=== PATIENT | male | born 1945 | race Caucasian/White ===

== ENCOUNTER 2018-06-04 09:53 | Inpatient (IN) ==
--- NOTE | 2018-06-04 10:40 | ED ---
HPI General Chief Complaint: Psychiatric Symptoms Stated Complaint: Psych eval Time Seen by Provider: 06/04/18 10:07 Source: patient Mode of arrival: ambulatory Limitations: no limitations History of Present Illness HPI Narrative: 72-year-old male presents to the emergency department voluntarily with complaint of depression for the past several months. His psychiatrist recommended he come for evaluation. He was started on a new medication a month ago for his depression and it is not been working. He has taken Wellbutrin, Viibryd, and Abilify in the past. He also has history of anxiety. Reports having thoughts of suicide that have crossed his mind but does not know how to go about it. He does not have any specific plan or any specific thoughts. He denies homicidal ideations. Denies history of suicidal attempts. Denies auditory visual hallucinations. Denies IV drug use, illicit drug use, EtOH, tobacco use. Says the symptoms are aggravated by "everything." Relieved by knowing that he is the only apparent to his daughter. Onset unknown. Duration chronic. Symptoms are moderate to severe in severity. Has been being treated by psychiatrist and started on new medication for symptom management. Psychiatrist is Dr. Villanueva. No known allergies. History of hypercholesterolemia and DVT/PE. Takes Xarelto. Has no other medical complaints. Denies chest pain, shortness breath, abdominal pain, nausea, vomiting, change in urine or stool. No other modifying factors or associated signs and symptoms. Related Data Home Medications Medication Instructions Recorded Confirmed atorvastatin 20 mg PO DAILY 06/04/18 06/04/18 bupropion HCl 300 mg PO DAILY 06/04/18 06/04/18 lamotrigine 100 mg PO BID 06/04/18 06/04/18 lorazepam 1 mg PO BID 06/04/18 06/04/18 mirtazapine 45 mg PO DAILY 06/04/18 06/04/18 rivaroxaban [Xarelto] 15 mg PO DAILY 06/04/18 06/04/18 Allergies Allergy/AdvReac Type Severity Reaction Status Date / Time No Known Allergies Allergy Verified 06/04/18 10:19 Review of Systems ROS: all other systems reviewed are negative PMFSH History History Provided By: Patient Medical History Medical History Deep venous thrombosis (Acute) Hypercholesteremia (Acute) Pulmonary embolism (Acute) Surgical History Surgical History Previous back surgery (Acute) Social History Social History Substance History: No History of Abuse Second Hand Smoke Exposure: No Smoking Status: Never smoker How Often Do You Have a Drink Containing Alcohol: Never Recent Travel in [facility] within the Last 8 Weeks: No Recent Out of Country Travel within the Last 8 Weeks: No Exam Narrative Exam Narrative: GENERAL: Well-nourished, well-developed elderly, male patient, in no acute distress SKIN: Warm and dry. HEAD: Atraumatic. Normocephalic. EYES: Pupils equal and round. ENT: Mucosa pink and moist. NECK: Supple. Trachea midline. CARDIOVASCULAR: Regular rate and rhythm. No murmur appreciated. RESPIRATORY: No accessory muscle use. Clear to auscultation. Breath sounds equal bilaterally. GASTROINTESTINAL: Abdomen soft, non-tender, nondistended. Hepatic and splenic margins not palpable. Bowel sounds are active 4 quadrants. MUSCULOSKELETAL: No obvious deformities. No clubbing. No cyanosis. No edema. NEUROLOGICAL: Awake and alert. Oriented 3. No obvious cranial nerve deficits. Motor grossly within normal limits. Normal speech. Moves all extremities. 5/5 strength to all extremities. PSYCHIATRIC: No delusional thought processes. No hallucinations. Course Initial Documented Vital Signs Temperature 97.7 F 06/04/18 09:55 Pulse Rate 97 H 06/04/18 09:55 Respiratory Rate 13 06/04/18 09:55 Blood Pressure 129/76 06/04/18 09:55 Pulse Oximetry 95 06/04/18 09:55 Last Documented Vital Signs Temperature 98 F 06/06/18 06:59 Pulse Rate 74 06/06/18 06:59 Respiratory Rate 16 06/06/18 06:59 Blood Pressure 130/61 06/06/18 06:59 Pulse Oximetry 95 06/06/18 06:59 Medical Decision Making MDM Narrative Medical decision making narrative: Patient presents voluntarily. Physical examination and vital signs are essentially unremarkable. Patient has no medical complaints to report. Psych screen has been ordered. If the laboratory results are unremarkable, the patient will be medically cleared for psychiatric evaluation and disposition. Medical Screen Exam Complete: Yes Emergency Medical Condition: Yes Differential Diagnosis Differential Diagnosis: Depression, anxiety, suicidal ideation, adjustment disorder, medical clearance for psychiatric evaluation Lab Data Result diagrams: 06/04/18 10:45 06/05/18 05:56 Lab Results 06/04/18 06/04/18 06/04/18 Range/Units 10:45 10:45 10:45 WBC 7.0 (4.0-11.0) th/mm3 RBC 4.40 L (4.50-5.90) mil/mm3 Hgb 14.0 (13.0-17.0) gm/dL Hct 40.4 (39.0-51.0) % MCV 91.8 (80.0-100.0) fL MCH 31.9 (27.0-34.0) pg MCHC 34.7 (32.0-36.0) % RDW 14.6 (11.6-17.2) % Plt Count 187 (150-450) th/mm3 MPV 9.7 (7.0-11.0) fL Neut % (Auto) 69.5 (16.0-70.0) % Lymph % (Auto) 19.8 (9.0-44.0) % [place] % (Auto) 8.5 H (0.0-8.0) % Eos % (Auto) 1.5 (0.0-4.0) % Baso % (Auto) 0.7 (0.0-2.0) % Neut # (Auto) 4.9 (1.8-7.7) th/mm3 Lymph # (Auto) 1.4 (1.0-4.8) th/mm3 [place] # (Auto) 0.6 (0.0-0.9) th/mm3 Eos # (Auto) 0.1 (0.0-0.4) th/mm3 Baso # (Auto) 0.0 (0.0-0.2) th/mm3 WBC Differential . Differential Comment Auto diff final Sodium 138 (136-145) meq/L Potassium 3.9 (3.5-5.1) meq/L Chloride 106 (98-107) meq/L Carbon Dioxide 22.0 (21.0-32.0) meq/L Anion Gap 10 (5-15) meq/L BUN 16 (7-18) mg/dL Creatinine 1.21 (0.60-1.30) mg/dL Estimated GFR 59 L (>89) mL/min Random Glucose 136 H (74-106) mg/dL Hemoglobin A1c (4.3-6.0) % Calcium 9.3 (8.5-10.1) mg/dL Total Bilirubin 0.3 (0.2-1.0) mg/dL AST 13 L (15-37) U/L ALT 51 (12-78) U/L Alkaline Phosphatase 78 (45-117) U/L Total Protein 7.3 (6.4-8.2) g/dL Albumin 3.5 (3.4-5.0) g/dL Triglycerides (42-150) mg/dL Cholesterol (120-200) mg/dL LDL Cholesterol, Calc (0-99) mg/dL HDL Cholesterol (40.0-60.0) mg/dL Cholesterol/HDL Ratio Ratio TSH 2.450 (0.358-3.740) uIU/mL Urine Color (Yellw/Straw) Urine Clarity (Clear) Urine pH (5.0-8.5) Ur Specific [place] (1.002-1.035) Urine Protein (Neg-Trace) mg/dL Urine Glucose (UA) (Negative) mg/dL Urine Ketones (Negative) mg/dL Urine Occult Blood (Negative) Urine Nitrate (Negative) Urine Bilirubin (Negative) Urine Urobilinogen (Less than 2) mg/dL Ur Leukocyte Esterase (Negative) Urine RBC (0-3) /hpf Urine WBC (0-5) /hpf Urine Mucus (Occasional) /lpf Micro UA Comment Ur Microscopic Review Urine Culture Comments Salicylates Less than 1.7 L (2.8-20.0) mg/dL Urine Opiates Screen (Neg) Acetaminophen Less than 2.0 L (10.0-30.0) mcg/mL Ur Barbiturates Screen (Neg) Ur Amphetamines Screen (Neg) U Benzodiazepines Scrn (Neg) Urine Cocaine Screen (Neg) U Cannabinoids Screen (Neg) Serum Alcohol Less than 3 (0-5) mg/dL 06/04/18 06/04/18 06/05/18 Range/Units 10:45 10:45 05:56 WBC (4.0-11.0) th/mm3 RBC (4.50-5.90) mil/mm3 Hgb (13.0-17.0) gm/dL Hct (39.0-51.0) % MCV (80.0-100.0) fL MCH (27.0-34.0) pg MCHC (32.0-36.0) % RDW (11.6-17.2) % Plt Count (150-450) th/mm3 MPV (7.0-11.0) fL Neut % (Auto) (16.0-70.0) % Lymph % (Auto) (9.0-44.0) % [place] % (Auto) (0.0-8.0) % Eos % (Auto) (0.0-4.0) % Baso % (Auto) (0.0-2.0) % Neut # (Auto) (1.8-7.7) th/mm3 Lymph # (Auto) (1.0-4.8) th/mm3 [place] # (Auto) (0.0-0.9) th/mm3 Eos # (Auto) (0.0-0.4) th/mm3 Baso # (Auto) (0.0-0.2) th/mm3 WBC Differential Differential Comment Sodium 142 (136-145) meq/L Potassium 4.2 (3.5-5.1) meq/L Chloride 111 H (98-107) meq/L Carbon Dioxide 21.7 (21.0-32.0) meq/L Anion Gap 9 (5-15) meq/L BUN 14 (7-18) mg/dL Creatinine 1.09 (0.60-1.30) mg/dL Estimated GFR 67 L (>89) mL/min Random Glucose 100 (74-106) mg/dL Hemoglobin A1c (4.3-6.0) % Calcium 8.7 (8.5-10.1) mg/dL Total Bilirubin (0.2-1.0) mg/dL AST (15-37) U/L ALT (12-78) U/L Alkaline Phosphatase (45-117) U/L Total Protein (6.4-8.2) g/dL Albumin (3.4-5.0) g/dL Triglycerides 294 H (42-150) mg/dL Cholesterol 181 (120-200) mg/dL LDL Cholesterol, Calc 87 (0-99) mg/dL HDL Cholesterol 34.9 L (40.0-60.0) mg/dL Cholesterol/HDL Ratio 5.18 Ratio TSH (0.358-3.740) uIU/mL Urine Color Yellow (Yellw/Straw) Urine Clarity Clear (Clear) Urine pH 6.0 (5.0-8.5) Ur Specific [place] 1.016 (1.002-1.035) Urine Protein Negative (Neg-Trace) mg/dL Urine Glucose (UA) Negative (Negative) mg/dL Urine Ketones Negative (Negative) mg/dL Urine Occult Blood Small H (Negative) Urine Nitrate Negative (Negative) Urine Bilirubin Negative (Negative) Urine Urobilinogen Less than 2 (Less than 2) mg/dL Ur Leukocyte Esterase Negative (Negative) Urine RBC 2 (0-3) /hpf Urine WBC Less than 1 (0-5) /hpf Urine Mucus Few H (Occasional) /lpf Micro UA Comment Culture not ind Ur Microscopic Review Not Reportable Urine Culture Comments Culture not ind Salicylates (2.8-20.0) mg/dL Urine Opiates Screen Neg (Neg) Acetaminophen (10.0-30.0) mcg/mL Ur Barbiturates Screen Neg (Neg) Ur Amphetamines Screen Neg (Neg) U Benzodiazepines Scrn Neg (Neg) Urine Cocaine Screen Neg (Neg) U Cannabinoids Screen Neg (Neg) Serum Alcohol (0-5) mg/dL 06/05/18 Range/Units 05:56 WBC (4.0-11.0) th/mm3 RBC (4.50-5.90) mil/mm3 Hgb (13.0-17.0) gm/dL Hct (39.0-51.0) % MCV (80.0-100.0) fL MCH (27.0-34.0) pg MCHC (32.0-36.0) % RDW (11.6-17.2) % Plt Count (150-450) th/mm3 MPV (7.0-11.0) fL Neut % (Auto) (16.0-70.0) % Lymph % (Auto) (9.0-44.0) % [place] % (Auto) (0.0-8.0) % Eos % (Auto) (0.0-4.0) % Baso % (Auto) (0.0-2.0) % Neut # (Auto) (1.8-7.7) th/mm3 Lymph # (Auto) (1.0-4.8) th/mm3 [place] # (Auto) (0.0-0.9) th/mm3 Eos # (Auto) (0.0-0.4) th/mm3 Baso # (Auto) (0.0-0.2) th/mm3 WBC Differential Differential Comment Sodium (136-145) meq/L Potassium (3.5-5.1) meq/L Chloride (98-107) meq/L Carbon Dioxide (21.0-32.0) meq/L Anion Gap (5-15) meq/L BUN (7-18) mg/dL Creatinine (0.60-1.30) mg/dL Estimated GFR (>89) mL/min Random Glucose (74-106) mg/dL Hemoglobin A1c 5.6 (4.3-6.0) % Calcium (8.5-10.1) mg/dL Total Bilirubin (0.2-1.0) mg/dL AST (15-37) U/L ALT (12-78) U/L Alkaline Phosphatase (45-117) U/L Total Protein (6.4-8.2) g/dL Albumin (3.4-5.0) g/dL Triglycerides (42-150) mg/dL Cholesterol (120-200) mg/dL LDL Cholesterol, Calc (0-99) mg/dL HDL Cholesterol (40.0-60.0) mg/dL Cholesterol/HDL Ratio Ratio TSH (0.358-3.740) uIU/mL Urine Color (Yellw/Straw) Urine Clarity (Clear) Urine pH (5.0-8.5) Ur Specific [place] (1.002-1.035) Urine Protein (Neg-Trace) mg/dL Urine Glucose (UA) (Negative) mg/dL Urine Ketones (Negative) mg/dL Urine Occult Blood (Negative) Urine Nitrate (Negative) Urine Bilirubin (Negative) Urine Urobilinogen (Less than 2) mg/dL Ur Leukocyte Esterase (Negative) Urine RBC (0-3) /hpf Urine WBC (0-5) /hpf Urine Mucus (Occasional) /lpf Micro UA Comment Ur Microscopic Review Urine Culture Comments Salicylates (2.8-20.0) mg/dL Urine Opiates Screen (Neg) Acetaminophen (10.0-30.0) mcg/mL Ur Barbiturates Screen (Neg) Ur Amphetamines Screen (Neg) U Benzodiazepines Scrn (Neg) Urine Cocaine Screen (Neg) U Cannabinoids Screen (Neg) Serum Alcohol (0-5) mg/dL Discharge Plan Discharge Disposition Patient Disposition: 30 Still Patient Discharge Condition Condition: Stable Discharge Details Diagnosis: Encounter for psychiatric assessment Physicians Team ED Provider: Solo Albarado ED Midlevel Provider: Livier Perez Primary Care Provider: Ricardo Waite Attending Provider: Jeferson Goel Status ED Status: Left Department Discharge Information Discharge Date/Time: 06/04/18 23:58
[2018-06-04 11:24] LABS: Baso % (Auto) 0.7 % (0.0-2.0); Eos # (Auto) 0.1 th/mm3 (0.0-0.4); Eos % (Auto) 1.5 % (0.0-4.0); Hematocrit 40.4 % (39.0-51.0); Lymph # (Auto) 1.4 th/mm3 (1.0-4.8); Lymph % (Auto) 19.8 % (9.0-44.0); Mean Corpuscular HGB Conc 34.7 % (32.0-36.0); Mean Corpuscular Hemoglobin 31.9 pg (27.0-34.0); Mean Corpuscular Volume 91.8 fL (80.0-100.0); Mean Platelet Volume 9.7 fL (7.0-11.0); Mono # (Auto) 0.6 th/mm3 (0.0-0.9); Mono % (Auto) 8.5 % (0.0-8.0); Neut # (Auto) 4.9 th/mm3 (1.8-7.7); Neut % (Auto) 69.5 % (16.0-70.0); Platelet Count 187 th/mm3 (150-450); Red Cell Distribution Width 14.6 % (11.6-17.2)
[2018-06-04 11:31] LABS: Bilirubin,Urine Negative (Negative); Clarity,Urine Clear (Clear); Color,Urine Yellow (Yellw/Straw); Glucose,Urine (UA) Negative (Negative); Leukocyte Esterase,Urine Negative (Negative); Mucus,Urine Few /lpf (Occasional); Nitrite,Urine Negative (Negative); Specific Gravity,Urine 1.016 (1.002-1.035)
[2018-06-04 11:35] LABS: Amphetamine Screen,Urine Neg (Neg); Barbiturate Screen,Urine Neg (Neg); Cannabinoid Screen,Urine Neg (Neg); Cocaine Screen,Urine Neg (Neg); Opiate Screen,Urine Neg (Neg)
[2018-06-04 11:40] LABS: Albumin 3.5 g/dL (3.4-5.0); Anion Gap 10 meq/L (5-15); Blood Urea Nitrogen 16 mg/dL (7-18); Calcium 9.3 mg/dL (8.5-10.1); Chloride 106 meq/L (98-107); Glomerular Filtration Rate 59 mL/min (>89); Glucose,Random 136 mg/dL (74-106); Potassium 3.9 meq/L (3.5-5.1); Sodium 138 meq/L (136-145)
[2018-06-04 11:41] LABS: Alanine Aminotransferase 51 U/L (12-78); Aspartate Aminotransferase 13 U/L (15-37)
[2018-06-04 11:51] LABS: Alkaline Phosphatase 78 U/L (45-117); Total Protein 7.3 g/dL (6.4-8.2)
[2018-06-04] MEDS ORDERED: Acetaminophen 325 MG Tablet PO PRN (23:26)
[2018-06-04] MEDS ORDERED: Melatonin 5 MG Tablet PO PRN (23:26)
[2018-06-04] MEDS ORDERED: Aluminum/Magnesium/Simethacone Susp 30 ML UDC PO PRN (23:26)
[2018-06-05 08:09] LABS: Calcium 8.7 mg/dL (8.5-10.1); Carbon Dioxide 21.7 meq/L (21.0-32.0); Potassium 4.2 meq/L (3.5-5.1)
[2018-06-05 08:12] LABS: Chol/HDL Ratio 5.18 Ratio; HDL Cholesterol 34.9 mg/dL (40.0-60.0)
[2018-06-05] MEDS: Rivaroxaban 15 MG Tablet PO SCH (10:13)
[2018-06-05] MEDS: Venlafaxine XR 37.5 MG Capsule PO SCH (16:15)
[2018-06-05 17:11] LABS: Hemoglobin A1c 5.6 % (4.3-6.0)
[2018-06-05] MEDS: lamoTRIgine 100 MG Tablet PO SCH (21:52)
[2018-06-05] MEDS: LORazepam 0.5 MG Tablet PO SCH (21:52)
[2018-06-05] MEDS: Mirtazapine 15 MG Tablet PO SCH (21:52)
--- NOTE | 2018-06-05 22:56 | P.HPPSY ---
Provisional Diagnosis Admission Date: June 04, 2018 23:25 [place] I.: Major depressive disorder Competence Certification of Person's Competence To Provide Express and Informed Consent I have personally examined Luca Abarca, a person being served at [facility] on, June 05, 2018 2256. Express and informed consent means consent voluntarily given in writing, by a competent person, after sufficient explanation and disclosure of the subject matter involved to enable the person to make a knowing and willful decision without any element of force, fraud, deceit, duress, or other form of constraint or coercion. This person is 18 years of age or older, is not now known to be incompetent to consent to treatment with a guardian advocate, and does not have a health care surrogate or proxy currently making medical treatment decisions. I have found this person to be one of the following: [xxx] Competent to provide express and informed consent, as defined above, for voluntary admission to this facility and is competent to provide express and informed consent for treatment. He/she has the consistent capacity to make well reasoned, willful, and knowing decisions concerning his or her medical or mental health treatment. The person fully and consistently understands the purpose of the admission for examination/placement and is fully capable of personally exercising all rights assured [place] Incompetent to provide express and informed consent to voluntary admission, and this is incompetent to provide express and informed consent to treatment. The person must be transferred to involuntary status and a petition for a guardian advocate filed with the Circuit Court. [] Refusing to provide express and informed consent to voluntary admission but is competent to provide express and informed consent for treatment. The person must be discharged or transferred to involuntary status. Form shall be completed within 24 hours of a person's arrival at the receiving facility and filed in the clinical record of each person: 1. Admitted on a voluntary basis 2. Permitted to provide express and informed consent to his/her own treatment 3. Allowed to transfer from involuntary to voluntary status 4. Prior to permitting a person to consent to his or her own treatment after having been previously found incompetent to consent to treatment. History of Present Illness Capacity: Has capacity History of Present Illness: Patient is a 72-year-old man, , domiciled , has 1 daughter , retired, with a past psychiatric history of depression and anxiety, no previous psychiatric admissions, no previous suicide attempt or self-injurious behavior with a past medical history significant for history of DVT and PE came in voluntarily with after recommendation by outpatient psychiatrist due to worsening depression and suicidal ideation which patient was admitted to the inpatient psychiatry for further evaluation and management. Patient states that he was on medication which had stopped working. He mentions his outpatient psychiatrist, Dr. Lambert I told him to come into the ED. He mentions that he had frequent crying spells at home for the past couple of days, stated that he has been depression and has been worsening particularly when his has left out of town and becomes upset when she leaves. Patient reports no changes sleep but decreased appetite energy and concentration, feeling depressed and worsening for the past couple of weeks along with suicide ideation for the past couple of weeks last time being 2 days ago. Patient also reports feeling helpless but not hopeless. Patient denies any perceptional services or delusions. Rest of psychiatric review of systems negative. Today patient reports feeling "down" denying any SI or HI. Collateral formation obtained by patient's states that patient had been started on new medication 2 weeks ago but had not been getting better and the patient had been noted to be depressed, having frequent crying episodes, with decreased appetite and disturbed sleep. She states that she has noticed patient being helpless, feeling "low" as been endorsing suicide ideations but no specific plan. She also is concerned patient also the worsening depression has decreased maintenance of hygiene, decreased motivation and decreased pleasure in hobbies. She states the patient has an appointment to start individual therapy on 06/18/18. Family psychiatric history: Daughter with bipolar disorder, father committed suicide Past psychiatric history: Previous psychiatric diagnoses depression anxiety and , no previous psychiatric admissions, no previous suicide attempt or self- injurious behavior. Patient denies any history of abuse. Patient outpatient provider is Dr. Lambert. Past medical history: History of DVT and PE Allergies: NKDA Social history: , domiciled with , has 1 daughter, retired. - Inpatient Certification I certify that the inpatient services were ordered in accordance with Medicare regulations governing the order. This includes certification that hospital inpatient services are reasonable and necessary and in the case of services not specified as inpatient-only under 42 CFR 419.22(n), that they are appropriately provided as inpatient services in accordance to with the 2-midnight benchmark under 43 CFR 412.3(e) I certify that inpatient psychiatric hospital services are medically necessary. Evaluation and treatment and/or diagnostic testing are expected to improve the patient's condition. The patient needs on a daily basis, active treatment furnished directly by or requiring the supervision of inpatient psychiatric facility personnel. Estimated Total Length of Stay (Days): 7 Plans for Post Hospital Care: Not yet determined Review of Systems All other systems reviewed negative except as stated in HPI PMFSH - History History Provided By: Patient, Family Member, Medical Record - Medical History Medical History: Medical History (Last Reviewed 06/04/18 @ 10:38 by MARIA A Coulter) Deep venous thrombosis Hypercholesteremia Pulmonary embolism - Surgical History Surgical History: Surgical History (Last Updated 06/04/18 @ 10:32 by Brea Melchor RN) Previous back surgery - Tobacco History Second Hand Smoke Exposure: No Tobacco Use In Past 30 Days: No Smoking Status: Never smoker - Alcohol History How Often Do You Have a Drink Containing Alcohol: Never - Substance Use History Substance History: No History of Abuse - Travel History Recent Travel in the [place] Within the Last 8 Weeks: No Recent Travel Out of the Country Within the Last 8 Weeks: No - Immunization History Tetanus Immunization: <5 Years Hx Influenza Vaccine This Season: Yes Quality Measures - Psychiatric History Psychological trauma history: Denies Violence risk to others in the last 6 months: Low Violence risk to self in the last 6 months: Elevated due to recent suicidal ideations - Substance Abuse History Drug or alcohol use in the past 12 months: See HPI - Patient Strengths Patient's strengths (minimum of 2): Verbal and communicative Medications and Allergies Active Medications: Active Medications Acetaminophen (Tylenol) 650 mg PO Q4H PRN PRN Reason: Pain 1-5 or Temp >101F Al Hydrox/Mg Hydrox/Simethicone (Mag-Al Plus Susp Liq) 30 ml PO Q6H PRN PRN Reason: DYSPEPSIA Al Hydroxide/Mg Hydroxide (Milk Of Magnesia Liq) 30 ml PO Q12H PRN PRN Reason: Mild Constipation Atorvastatin Calcium (Lipitor) 20 mg PO DAILY [facility] Last Admin: 06/05/18 10:13 Dose: 20 mg Lamotrigine (Lamictal) 100 mg PO BID [facility] Last Admin: 06/05/18 21:52 Dose: 100 mg Lorazepam (Ativan) 0.5 mg PO BID [facility] Last Admin: 06/05/18 21:52 Dose: 0.5 mg Melatonin (Melatonin) 5 mg PO HS PRN PRN Reason: INSOMNIA Mirtazapine (Remeron) 45 mg PO HS [facility] Last Admin: 06/05/18 21:52 Dose: 45 mg Rivaroxaban (Xarelto) 15 mg PO DAILY [facility] Last Admin: 06/05/18 10:13 Dose: 15 mg Venlafaxine HCl (Effexor Xr) 37.5 mg PO DAILY [facility] Last Admin: 06/05/18 16:15 Dose: 37.5 mg Allergies Allergy/AdvReac Type Severity Reaction Status Date / Time No Known Allergies Allergy Verified 06/04/18 10:19 Home Medications Medication Instructions Recorded Confirmed Type atorvastatin 20 mg PO DAILY 06/04/18 06/04/18 History bupropion HCl 300 mg PO DAILY 06/04/18 06/04/18 History lamotrigine 100 mg PO BID 06/04/18 06/04/18 History lorazepam 1 mg PO BID 06/04/18 06/04/18 History mirtazapine 45 mg PO DAILY 06/04/18 06/04/18 History rivaroxaban [Xarelto] 15 mg PO DAILY 06/04/18 06/04/18 History Results - Labs CBC & Chem 7: 06/04/18 10:45 06/05/18 05:56 Labs: Laboratory Results - last 24 hr 06/05/18 06/05/18 05:56 05:56 Sodium 142 Potassium 4.2 Chloride 111 H Carbon Dioxide 21.7 Anion Gap 9 BUN 14 Creatinine 1.09 Estimated GFR 67 L Random Glucose 100 Hemoglobin A1c 5.6 Calcium 8.7 Triglycerides 294 H Cholesterol 181 LDL Cholesterol, Calc 87 HDL Cholesterol 34.9 L Cholesterol/HDL Ratio 5.18 Exam Vital signs: Vital Signs 06/05/18 00:00 06/05/18 05:37 06/05/18 05:42 Temperature 98.1 F 98.1 F 98.1 F Pulse Rate 75 78 78 Respiratory Rate 18 17 17 Blood Pressure 133/75 114/59 L 114/59 L Pulse Oximetry 94 L 93 L 93 L 06/05/18 17:45 06/05/18 18:18 Temperature 98.0 F 98 F Pulse Rate 87 87 Respiratory Rate 16 16 Blood Pressure 130/59 L 130/59 L Pulse Oximetry 93 L 93 L Intake & Output 06/05/18 06/05/18 06/06/18 06:59 18:59 06:59 Intake Total 1679 1680 Balance 1679 Weight 76.3 kg Intake: Oral 1679 Other: Date of Last Bowel Movement 06/04/18 06/04/18 Weight On Admission 76.3 kg Narrative: Patient not noted to be in acute distress, no gross motor abnormalities, no signs of tremor or EPS, no psychomotor agitation or retardation. Mental Status Examination Appearance: Appropriate Consciousness: Alert Orientation: x4 Motor Activity: Normal gait Speech: Unremarkable Language: Adequate Fund of Knowledge: Inadequate Attention and Concentration: Adequate Memory: Unremarkable Mood: Sad Affect: Sad Thought Process & Associations: Intact, Linear Thought Content: Appropriate Hallucination Type: None Delusion Type: None Suicidal Ideation: Yes Suicidal Plan: No Suicidal Intention: No Homicidal Ideation: No Homicidal Plan: No Homicidal Intention: No Insight: Fair Judgment: Impulsive Assessment and Plan - Assessment (1) Major depressive disorder Code(s): F32.9 - Major depressive disorder, single episode, unspecified Status : Acute - Plan Plan: Estimated LOS: [] days Patient is a 72-year-old man who carries a diagnosis of depression, anxiety, no previous psychiatric admissions, no previous suicide attempt or self -injurious behavior who was sent to the ED by his outpatient psychiatrist due to worsening depression which patient this time requires inpatient psychiatric stabilization. We will continue patient on mirtazapine 45 mg at bedtime, Lamictal 100 mg p.o. twice daily, Wellbutrin XL 300 mg daily and will start Effexor 37.5 mg daily. Consulted with patient's outpatient provider Dr. Lambert over the telephone over treatment history and also was in agreement of starting patient on Effexor at this time. We will continue to monitor mood and behavior. Patient will continue on a voluntary status and has capacity to consent for treatment. Discharge planning a progress. Justification for Continued Inpatient Stay: At risk of further decompensation at lower level care. (1) Major depressive disorder Qualifiers: Major depression recurrence: recurrent Active/Remission status: currently active Major depression episode severity: severe Psychotic features: without psychotic features Qualified Code(s): F33.2 - Major depressive disorder, recurrent severe without psychotic features
[2018-06-06] MEDS: Rivaroxaban 15 MG Tablet PO SCH (09:38)
[2018-06-06] MEDS: lamoTRIgine 100 MG Tablet PO SCH ×2 (09:38→21:07)
[2018-06-06] MEDS: LORazepam 0.5 MG Tablet PO SCH ×2 (09:38→21:07)
[2018-06-06] MEDS: Venlafaxine XR 37.5 MG Capsule PO SCH (09:38)
--- NOTE | 2018-06-06 19:31 | P.PNPSY ---
Subjective Remarks: Patient seen for follow-up, chart reviewed. Discussion with nursing staff reported that patient smiling, alpha meals, good affect, slept well last evening. Patient was found lying hospital bed noted B, cooperative. Patient states that he slept well last evening, eating and drinking well, appetite has been "okay" and his mood has been "pretty good". Patient reports minimal depressed mood, denying any suicide ideations. Patient reports having spoke with his yesterday which went well and has plan to be visited by his this evening. Patient denies any adverse drug reactions. Review of Systems All other systems reviewed negative except as stated in HPI Mental Status Examination Appearance: Appropriate Consciousness: Alert Orientation: x4 Motor Activity: Normal gait Speech: Unremarkable Language: Adequate Fund of Knowledge: Inadequate Attention and Concentration: Adequate Memory: Unremarkable Mood: Good Affect: Sad (Lessening) Thought Process & Associations: Intact, Linear Thought Content: Appropriate Hallucination Type: None Delusion Type: None Suicidal Ideation: Yes (Denies today) Suicidal Plan: No Suicidal Intention: No Homicidal Ideation: No Homicidal Plan: No Homicidal Intention: No Insight: Fair Judgment: Impulsive Assessment and Plan - Assessment (1) Major depressive disorder Code(s): F32.9 - Major depressive disorder, single episode, unspecified Status : Acute - Plan Plan: Patient this time noted with improved affect, reports having been off her meals and having been visible on the unit. Patient tolerating medications well. Denies any suicide ideations at this time. Continue current treatment. Continue to monitor mood and behavior. Discharge planning in progress. Justification for Continued Inpatient Stay: At risk of further decompensation at lower level care. (1) Major depressive disorder Qualifiers: Major depression recurrence: recurrent Active/Remission status: currently active Major depression episode severity: severe Psychotic features: without psychotic features Qualified Code(s): F33.2 - Major depressive disorder, recurrent severe without psychotic features
[2018-06-06] MEDS: Mirtazapine 15 MG Tablet PO SCH (21:07)
[2018-06-07] MEDS: lamoTRIgine 100 MG Tablet PO SCH ×2 (08:21→21:09)
[2018-06-07] MEDS: Rivaroxaban 15 MG Tablet PO SCH (08:21)
[2018-06-07] MEDS: Venlafaxine XR 37.5 MG Capsule PO SCH (08:21)
[2018-06-07] MEDS: LORazepam 0.5 MG Tablet PO SCH ×2 (08:21→21:09)
--- NOTE | 2018-06-07 15:28 | P.PNPSY ---
Subjective Remarks: Patient seen for follow-up, chart reviewed. Discussion with nursing staff reported that patient with good affect, sleeping well, attending groups, with improved mood. Patient was found sitting hospital bed with at bedside interviewed together. Patient states that he is feeling "good" stating he is not feeling depressed, denying any adverse drug reactions, denying any suicidal homicidal ideations. Patient that he is attending groups and is feeling much better. also mentions feeling surprised that patient is doing much better and that he has been also reports auditory and activities on the unit. Patient was requesting discharge but was recommended further stabilization to maintain consistency and tolerance to treatment which he and his agreed to. Review of Systems All other systems reviewed negative except as stated in HPI Mental Status Examination Appearance: Appropriate Consciousness: Alert Orientation: x4 Motor Activity: Normal gait Speech: Unremarkable Language: Adequate Fund of Knowledge: Inadequate Attention and Concentration: Adequate Memory: Unremarkable Mood: Good Affect: Sad (Lessening) Thought Process & Associations: Intact, Linear Thought Content: Appropriate Hallucination Type: None Delusion Type: None Suicidal Ideation: Yes (Denies today) Suicidal Plan: No Suicidal Intention: No Homicidal Ideation: No Homicidal Plan: No Homicidal Intention: No Insight: Fair Judgment: Impulsive Assessment and Plan - Assessment (1) Major depressive disorder Code(s): F32.9 - Major depressive disorder, single episode, unspecified Status : Acute - Plan Plan: Patient this time noted with improved mood, noted to be more engaging in interview and had been attending groups as tolerated medications well. Continue current treatment. Continue to monitor mood and behavior. Discharge planning in progress. Patient like for discharge on Sunday. Justification for Continued Inpatient Stay: At risk of further decompensation at lower level care. (1) Major depressive disorder Qualifiers: Major depression recurrence: recurrent Active/Remission status: currently active Major depression episode severity: severe Psychotic features: without psychotic features Qualified Code(s): F33.2 - Major depressive disorder, recurrent severe without psychotic features
[2018-06-07] MEDS: Mirtazapine 15 MG Tablet PO SCH (21:09)
[2018-06-08] MEDS: lamoTRIgine 100 MG Tablet PO SCH ×2 (08:55→20:32)
[2018-06-08] MEDS: Venlafaxine XR 37.5 MG Capsule PO SCH (08:55)
[2018-06-08] MEDS: Rivaroxaban 15 MG Tablet PO SCH (08:55)
[2018-06-08] MEDS: LORazepam 0.5 MG Tablet PO SCH ×2 (08:55→20:32)
--- NOTE | 2018-06-08 11:21 | P.PNPSY ---
Subjective Remarks: Pt seen and discussed with staff. Chart reviewed. He was admitted for depression. He has been compliant with medications and care. Mood is improving and stress tolerance is better. No SI/HI today. Mental Status Examination Appearance: Appropriate Consciousness: Alert Orientation: x4 Motor Activity: Normal gait Speech: Unremarkable Language: Adequate Fund of Knowledge: Inadequate Attention and Concentration: Adequate Memory: Unremarkable Mood: Sad (mild) Affect: Appropriate Thought Process & Associations: Intact, Linear Thought Content: Appropriate Hallucination Type: None Delusion Type: None Suicidal Ideation: No (Denies today) Suicidal Plan: No Suicidal Intention: No Homicidal Ideation: No Homicidal Plan: No Homicidal Intention: No Insight: Fair Judgment: Impulsive Assessment and Plan - Assessment (1) Major depressive disorder Code(s): F32.9 - Major depressive disorder, single episode, unspecified Status : Acute - Plan Plan: Pt improving. Continue current tx plan Justification for Continued Inpatient Stay: risk of decompensation (1) Major depressive disorder Qualifiers: Major depression recurrence: recurrent Active/Remission status: currently active Major depression episode severity: severe Psychotic features: without psychotic features Qualified Code(s): F33.2 - Major depressive disorder, recurrent severe without psychotic features
[2018-06-08] MEDS: Mirtazapine 15 MG Tablet PO SCH (20:32)
[2018-06-09 05:24] VITALS: O2SAT 92
--- NOTE | 2018-06-09 08:38 | P.PNPSY ---
Subjective Remarks: Chart reviewed and discussed with nursing staff. Patient is in his room reading. Patient feels that his depression has improved. He is sleeping well. Nursing thinks patient will be discharged tomorrow. He is followed by psychiatrist, Dr. Lambert. Review of Systems All other systems reviewed negative except as stated in HPI Mental Status Examination Appearance: Appropriate Consciousness: Alert Orientation: x4 Motor Activity: Normal gait Speech: Unremarkable Language: Adequate Fund of Knowledge: Inadequate Attention and Concentration: Adequate Memory: Unremarkable Mood: Sad (mild) Affect: Appropriate Thought Process & Associations: Intact, Linear Thought Content: Appropriate Hallucination Type: None Delusion Type: None Suicidal Ideation: No (Denies today) Suicidal Plan: No Suicidal Intention: No Homicidal Ideation: No Homicidal Plan: No Homicidal Intention: No Insight: Fair Judgment: Impulsive Assessment and Plan - Assessment (1) Major depressive disorder Code(s): F32.9 - Major depressive disorder, single episode, unspecified Status : Acute - Plan Plan: Pt improving. Continue current tx plan Justification for Continued Inpatient Stay: Moving patient to a less restrictive environment may result in his decompensation. (1) Major depressive disorder Qualifiers: Major depression recurrence: recurrent Active/Remission status: currently active Major depression episode severity: severe Psychotic features: without psychotic features Qualified Code(s): F33.2 - Major depressive disorder, recurrent severe without psychotic features
[2018-06-09] MEDS: LORazepam 0.5 MG Tablet PO SCH ×2 (09:14→20:59)
[2018-06-09] MEDS: Venlafaxine XR 37.5 MG Capsule PO SCH (09:14)
[2018-06-09] MEDS: lamoTRIgine 100 MG Tablet PO SCH ×2 (09:14→20:58)
[2018-06-09] MEDS: Rivaroxaban 15 MG Tablet PO SCH (09:15)
[2018-06-09] MEDS: Mirtazapine 15 MG Tablet PO SCH (20:59)
[2018-06-10 05:39] VITALS: BP 121/65; PULSE 71; RESP 18; TEMP 98
[2018-06-10] MEDS: Rivaroxaban 15 MG Tablet PO SCH (08:20)
[2018-06-10] MEDS: lamoTRIgine 100 MG Tablet PO SCH (08:20)
[2018-06-10] MEDS: LORazepam 0.5 MG Tablet PO SCH (08:20)
[2018-06-10] MEDS: Venlafaxine XR 37.5 MG Capsule PO SCH (08:20)
--- NOTE | 2018-06-10 17:28 | P.DSPSY ---
Psychiatry Discharge Summary Inpatient Psychiatric care?: Yes Advance Directives: Yes Reason for Unknown:: Other Other Reason for Unknown: Patient given info does not have Mental Health Advance Directive: No Health Care Proxy: No - Admission Admission Date: June 04, 2018 23:25 - Admission Diagnosis (1) Major depressive disorder Code(s): F32.9 - Major depressive disorder, single episode, unspecified Brief History: Patient is a 72-year-old man, , domiciled , has 1 daughter , retired, with a past psychiatric history of depression and anxiety, no previous psychiatric admissions, no previous suicide attempt or self-injurious behavior with a past medical history significant for history of DVT and PE came in voluntarily with after recommendation by outpatient psychiatrist due to worsening depression and suicidal ideation which patient was admitted to the inpatient psychiatry for further evaluation and management. Patient states that he was on medication which had stopped working. He mentions his outpatient psychiatrist, Dr. Lambert I told him to come into the ED. He mentions that he had frequent crying spells at home for the past couple of days, stated that he has been depression and has been worsening particularly when his has left out of town and becomes upset when she leaves. Patient reports no changes sleep but decreased appetite energy and concentration, feeling depressed and worsening for the past couple of weeks along with suicide ideation for the past couple of weeks last time being 2 days ago. Patient also reports feeling helpless but not hopeless. Patient denies any perceptional services or delusions. Rest of psychiatric review of systems negative. Today patient reports feeling "down" denying any SI or HI. Collateral formation obtained by patient's states that patient had been started on new medication 2 weeks ago but had not been getting better and the patient had been noted to be depressed, having frequent crying episodes, with decreased appetite and disturbed sleep. She states that she has noticed patient being helpless, feeling "low" as been endorsing suicide ideations but no specific plan. She also is concerned patient also the worsening depression has decreased maintenance of hygiene, decreased motivation and decreased pleasure in hobbies. She states the patient has an appointment to start individual therapy on 06/18/18. Family psychiatric history: Daughter with bipolar disorder, father committed suicide Past psychiatric history: Previous psychiatric diagnoses depression anxiety and , no previous psychiatric admissions, no previous suicide attempt or self- injurious behavior. Patient denies any history of abuse. Patient outpatient provider is Dr. Lambert. Past medical history: History of DVT and PE Allergies: NKDA Social history: , domiciled with , has 1 daughter, retired. Tobacco Use In Past 30 Days: No How Often Do You Have a Drink Containing Alcohol: Never Hospital Course: Patient is a 72-year-old man, , domiciled , has 1 daughter , retired, with a past psychiatric history of depression and anxiety, no previous psychiatric admissions, no previous suicide attempt or self-injurious behavior with a past medical history significant for history of DVT and PE came in voluntarily with after recommendation by outpatient psychiatrist due to worsening depression and suicidal ideation which patient was admitted to the inpatient psychiatry for further evaluation and management. Patient was admitted to a locked, inpatient psychiatric unit. Appropriate precautions were in place throughout patient's hospital stay. Patient was seen and examined on the unit by psychiatry. Psychotropic medications were adjusted. There was no evidence of any suicidality or homicidality on the inpatient unit. Patient's mood improved with the benefit of psychopharmacological treatment and had no behavioral disturbance since admission. Patient was noted to have reached stable mood, noted to participate and engage in treatment and interact with staff adequately. Patient noted to be future oriented with plans to continue treatment and outpatient follow-up appointments for continuity of care. Counselor has arranged discharge plan the patient returned back to his residence with . On the day of discharge: Patient seen and examined; chart reviewed. Case discussed with nurse and counselor. No behavioral issues overnight. On my examination today, the patient denies any suicidal homicidal ideation, intent or plan on direct questioning and contracts for safety. Patient denies any perceptional disturbances and no delusional material verbalized today. Patient denies any side effects from medication and has understanding of medication regimen and education. No physical complaints. Suicide and violence risk assessment on day of discharge both suggest lower imminent risk, and the patient's level of function is adequate for plan level of outpatient care. Patient has maximized benefit from this inpatient psychiatric hospital stay and will be discharged with discharge plan as arranged by counselor. Patient advised to return to psychiatric emergency room for any concerning psychiatric symptoms. Patient agrees with plan. - Discharge Discharge Date: 06/10/18 - Discharge Diagnosis (1) Major depressive disorder Code(s): F32.9 - Major depressive disorder, single episode, unspecified Status : Acute Discharge Disposition: Home - Discharge Instructions Discharge Diet: Heart Healthy Diet Activities You Can Perform: Regular- No Restrictions - Discharge Time > 30 minutes Mental Status Examination Appearance: Appropriate Consciousness: Alert Orientation: x4 Motor Activity: Normal gait Speech: Unremarkable Language: Adequate Fund of Knowledge: Inadequate Attention and Concentration: Adequate Memory: Unremarkable Mood: Appropriate Affect: Appropriate Thought Process & Associations: Intact, Goal directed, Linear Thought Content: Appropriate Hallucination Type: None Delusion Type: None Suicidal Ideation: No Suicidal Plan: No Suicidal Intention: No Homicidal Ideation: No Homicidal Plan: No Homicidal Intention: No Insight: Adequate Judgment: Adequate Discharge/Advance Care Plan - Results Vital Signs: Last Vital Signs Temp 98 F 06/10/18 05:38 Pulse 71 06/10/18 05:38 Resp 18 06/10/18 05:38 BP 121/65 06/10/18 05:38 Pulse Ox 92 L 06/10/18 05:38 Lab Results: Laboratory Results Hemoglobin A1c 5.6 % (4.3-6.0) 06/05/18 05:56 Triglycerides 294 mg/dL (42-150) H 06/05/18 05:56 Cholesterol 181 mg/dL (120-200) 06/05/18 05:56 LDL Cholesterol, Calc 87 mg/dL (0-99) 06/05/18 05:56 HDL Cholesterol 34.9 mg/dL (40.0-60.0) L 06/05/18 05:56 TSH 2.450 uIU/mL (0.358-3.740) 06/04/18 10:45 Urine Culture Comments Culture not ind 06/04/18 10:45 Summary of Procedures: None Pending Results: None - Medications Number of antipsychotic medications at discharge: 0 - Discharge Care Plan Goals to Promote Your Health: * To prevent worsening of your condition and complications * To maintain your health at the optimal level Directions to Meet Your Goals: Take your medications as prescribed Follow your dietary instruction Follow activity as directed Keep your appointments as scheduled Take your immunizations and boosters as scheduled If your symptoms worsen call your PCP, if no PCP go to Urgent Care Center or Emergency Room For 12/03 questions related to your inpatient stay or results of tests pending at discharge, please contact Dr. Jeferson Goel MD at Smoking is Dangerous to Your Health. Avoid second hand smoking (1) Major depressive disorder Qualifiers: Major depression recurrence: recurrent Active/Remission status: currently active Major depression episode severity: severe Psychotic features: without psychotic features Qualified Code(s): F33.2 - Major depressive disorder, recurrent severe without psychotic features (1) Major depressive disorder Qualifiers: Major depression recurrence: recurrent Active/Remission status: currently active Major depression episode severity: severe Psychotic features: without psychotic features Qualified Code(s): F33.2 - Major depressive disorder, recurrent severe without psychotic features
== END 2018-06-10 11:30 | disposition home or self-care (01) ==
LOC: NEPD 09:53 → NEDA 23:25 → H250 06-05 00:05
PROVIDERS: ADMIT Student in an Organized Health Care Education/Training Program; ATTEND Student in an Organized Health Care Education/Training Program